=== PATIENT | male | born 1995 | race American Indian/Alaskan Native ===

== ENCOUNTER 2020-05-04 12:07 | Emergency (ER) | payer OTHER ==
[2020-05-04 12:18] VITALS: BP 133/89
--- NOTE | 2020-05-04 12:50 | Emergency Department Report ---
ED General Adult HPI - General Chief complaint: Abdominal Pain Stated complaint: POSSIBLE BLEEDING ULCER Time Seen by Provider: 05/04/20 12:28 Source: patient Mode of arrival: Ambulatory Limitations: No Limitations - History of Present Illness Initial comments: Patient is a 24-year-old male presents emergency room with complaints of upper abdominal pain that began 2 years ago. He states that he has had these symptoms in the past and has seen previous doctors and was diagnosed with GERD. He is not on any medication for GERD. He has not seen a GI doctor or had a EGD performed. He states that his mother has a history of bleeding ulcers and he was concerned that he may have one. He denies any hematochezia, hematemesis, melena. He denies any nausea, vomiting, diarrhea, fever, urinary symptoms. He denies any past medical history. No allergies to medications. He states that his symptoms are worse and worse after he eats. He denies alcohol use, tobacco use, drug use. Severity scale (0 -10): 3 - Related Data Previous Rx's Medication Instructions Recorded Last Taken Type Omeprazole 20 mg PO DAILY #30 tablet. 05/04/20 Unknown Rx Sucralfate [Carafate] 1 gm PO ACHS 7 Days #21 tablet 05/04/20 Unknown Rx Allergies Allergy/AdvReac Type Severity Reaction Status Date / Time No Known Allergies Allergy Unverified 05/04/20 12:11 ED Review of Systems ROS: Stated complaint: POSSIBLE BLEEDING ULCER Other details as noted in HPI Comment: All other systems reviewed and negative ED Past Medical Hx - Past Medical History Previous Medical History?: No - Surgical History Past Surgical History?: No - Social History Smoking Status: Former Smoker Substance Use Type: None - Medications Home Medications: Home Medications Medication Instructions Recorded Confirmed Last Taken Type Omeprazole 20 mg PO DAILY #30 tablet. 05/04/20 Unknown Rx Sucralfate [Carafate] 1 gm PO ACHS 7 Days #21 tablet 05/04/20 Unknown Rx ED Physical Exam - General Limitations: No Limitations General appearance: alert, in no apparent distress - Head Head exam: Present: atraumatic, normocephalic - Eye Eye exam: Present: normal appearance - ENT ENT exam: Present: mucous membranes moist - Respiratory Respiratory exam: Present: normal lung sounds bilaterally. Absent: respiratory distress, wheezes, rales, rhonchi, stridor, chest wall tenderness, accessory muscle use, decreased breath sounds, prolonged expiratory - Cardiovascular Cardiovascular Exam: Present: regular rate, normal rhythm, normal heart sounds. Absent: systolic murmur, diastolic murmur, rubs, gallop - GI/Abdominal GI/Abdominal exam: Present: soft, normal bowel sounds, other (negative murphys sign, no mcburneys point ttp, no distension, no peritoneal signs, no ttp, negative tong turners and cullens sign). Absent: distended, tenderness, guarding, rebound, rigid - Neurological Exam Neurological exam: Present: alert, oriented X3 - Psychiatric Psychiatric exam: Present: normal affect, normal mood - Skin Skin exam: Present: warm, dry, intact ED Course Vital Signs 05/04/20 12:17 Temperature 98.1 F Pulse Rate 114 H Respiratory 18 Rate Blood Pressure 133/89 [Right] O2 Sat by Pulse 95 Oximetry ED Medical Decision Making - Medical Decision Making Patient is a 24-year-old male presents emergency room with complaints of upper abdominal pain that began 2 years ago. He states that he has had these symptoms in the past and has seen previous doctors and was diagnosed with GERD. He is not on any medication for GERD. He has not seen a GI doctor or had a EGD performed. He states that his mother has a history of bleeding ulcers and he was concerned that he may have one. He denies any hematochezia, hematemesis, melena. He denies any nausea, vomiting, diarrhea, fever, urinary symptoms. He denies any past medical history. No allergies to medications. He states that his symptoms are worse and worse after he eats. He denies alcohol use, tobacco use, drug use. initial triage vitals with elevated HR repeat in exam room and it is 98 bpm. on exam: negative murphys sign, no mcburneys point ttp, no distension, no peritoneal signs, no ttp, negative tong turners and cullens sign, no abd ttp, no distension, no guarding, no rebound, no rigidity. he is in no acute distress, no pain on exam, no fever. Symptoms likely related to GERD versus ulcers. Patient be referred to GI. He has no clinical signs of bleeding ulcer, no hematemesis, no hematochezia, melena, he is tolerating PO intake, VSS, no abd ttp. Advised patient to be reexamined with next 2 days, he verbalized understanding. Patient given prescription for Carafate and omeprazole. Discussed very strict return precautions with patient. Advised patient Please take medication as prescribed. Increase your water intake. Avoid anything tomato-based, barbecue base, eating large meals and then lying down. Follow-up with a GI doctor. Follow-up with your primary care doctor. Return to emergency room for any new or worsening symptoms including but not l imited to worsening pain, fever, vomiting, unable to tolerate by mouth intake, blood in the stool or vomit, black/dark stool, etc. Critical care attestation.: If time is entered above; I have spent that time in minutes in the direct care of this critically ill patient, excluding procedure time. ED Disposition Clinical Impression: Upper abdominal pain Disposition: TO HOME OR SELFCARE Is pt being admited?: No Does the pt Need Aspirin: No Condition: Stable Instructions: Peptic Ulcer, [id number], Heartburn, [id number], Peptic Ulcer Eating Plan Additional Instructions: Please take medication as prescribed. Increase your water intake. Avoid anything tomato-based, barbecue base, eating large meals and then lying down. Follow-up with a GI doctor. Follow-up with your primary care doctor. Return to emergency room for any new or worsening symptoms including but not limited to worsening pain, fever, vomiting, unable to tolerate by mouth intake, blood in the stool or vomit, black/dark stool, etc. Prescriptions: Sucralfate [Carafate] 1 gm PO ACHS 7 Days #21 tablet Omeprazole 20 mg PO DAILY #30 tablet. Referrals: [facility] [Primary Care Provider] - 2-3 Days [facility] [Provider Group] - 2-3 Days [facility] [Provider Group] - 2-3 Days DALE TALAMANTES MD [Staff Physician] - 2-3 Days Time of Disposition: 12:49 Print Language: SERBIAN
== END 2020-05-04 13:18 | disposition home or self-care (01) ==
LOC: ED 12:07
DX: R10.10 Upper abdominal pain, unspecified (principal)
CPT/HCPCS: 99282